=== PATIENT | female | born 1985 | race Caucasian/White ===

== ENCOUNTER → 2022-05-30 | Outpatient (CLI) | payer BC ==
--- NOTE | 2022-05-31 02:11 | MR ---
EXAMINATION TYPE: MR tmj wo con DATE OF EXAM: 05/30/2022 COMPARISON: None HISTORY: Jaw pain. FINDINGS: Multiplanar multi echo imaging of the temporomandibular joints without contrast. There is open and cl osed mouth views. There is very little movement of the mandibular condyles on the open-mouth position. The patient coul d not fully open the mouth. The mandibular condyles appear intact. No focal bone destruction. Temporomandibular joint spaces are fairly normal. There is normal appearance of the right temporomandibular joint and the meniscus. On the left side there is anterior abnormal displacement of the meniscus. No evidence of a soft tissue mass. IMPRESSION: Abnormal left side temporomandibular joint with evidence of meniscal tear and abnormal anterior posit ion. Normal appearing right temporomandibular joint.
== END | disposition home or self-care (01) ==
LOC: RADMRIMAIN 14:30
PROVIDERS: ATTEND Internal Medicine
DX: M23.312 Other meniscus derangements, anterior horn of medial meniscus, left knee (principal)
CPT/HCPCS: 70336